=== PATIENT | male | born 1940 | race Caucasian/White ===

== ENCOUNTER 2018-02-08 10:12 | Day surgery (SDC) | payer MEDICARE, MEDICAID | END 2018-02-08 10:13 | disposition home or self-care (01) | LOC: C.ENDO 10:12 | PROVIDERS: ATTEND Internal Medicine Gastroenterology | DX: Z12.11 Encounter for screening for malignant neoplasm of colon (principal); R07.89 Other chest pain; Z53.9 Procedure and treatment not carried out, unspecified reason ==